=== PATIENT | male | born 1990 | race American Indian/Alaskan Native ===

== ENCOUNTER 2021-06-05 19:43 | Emergency (ER) | payer SELFPAY ==
[2021-06-05] MEDS ORDERED: MORPHINE 4 MG/1 ML INJ IV ONE (20:20)
[2021-06-05] MEDS ORDERED: ONDANSETRON 4 MG/2 ML INJ IV ONE (20:20)
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
== END 2021-06-06 01:46 ==
LOC: ED 19:43
DX: I46.9 Cardiac arrest, cause unspecified (principal)
CPT/HCPCS: 99285